=== PATIENT | female | born 1960 | race Caucasian/White ===

== ENCOUNTER 2016-03-27 15:42 | Emergency (ER) | payer MEDICARE, OTHER | END 2016-03-27 18:05 | disposition home or self-care (01) | LOC: ER 15:42 | CPT/HCPCS: 36415 ×2; 80053 ×2; 81001 ×2; 84439 ×2; 84443 ×2; 85025 ×2; 85610 ×2; 87088 ×2; 99285; G0479; G0480 ==

== ENCOUNTER 2016-04-05 11:19 | Inpatient (IN) | payer MEDICARE, OTHER ==
[~2016-04-05] VITALS: Ht 175.3 cm; Wt 79.9 kg
[2016-04-05] MEDS ORDERED: TRAZODONE 50 MG TAB PO PRN (16:30)
[2016-04-05] MEDS ORDERED: HALOPERIDOL 5 MG/ML VIAL IM PRN (16:35)
[2016-04-05] MEDS ORDERED: LORAZEPAM 2 MG TAB PO PRN (16:35)
[2016-04-05] MEDS ORDERED: MAG HYDROX 30 ML UDC PO PRN (16:35)
[2016-04-05] MEDS ORDERED: LORAZEPAM 2 MG/ML VIAL IM PRN (16:35)
[2016-04-05] MEDS ORDERED: ACETAMINOPHEN 325 MG TAB PO PRN (16:35)
[2016-04-05] MEDS ORDERED: DIPHENHYDRAMINE 50 MG CAP PO PRN (16:35)
[2016-04-05] MEDS ORDERED: DIPHENHYDRAMINE 50 MG/ML VIAL IM PRN (16:35)
[2016-04-05] MEDS ORDERED: ALU/MAG/SIM 30 ML UDC PO PRN (16:35)
[2016-04-05] MEDS ORDERED: HALOPERIDOL 5 MG TAB PO PRN (16:35)
[2016-04-05] MEDS ORDERED: cloNIDine 0.1 MG TAB ONE ×2 (16:41→16:44)
[2016-04-05] MEDS: NICOTINE 21 MG/24 HR TRANSDERM SCH (17:32)
[2016-04-05 19:01] VITALS: BP_SYST 133; RESP 18; TEMP 97.6
[2016-04-05] MEDS: *HOME MEDS KEPT IN PHARMACY XX SCH (20:12)
[2016-04-06] MEDS: *HOME MEDS KEPT IN PHARMACY XX SCH ×2 (09:00→20:00)
[2016-04-06 09:07] VITALS: BP_SYST 150; RESP 18; TEMP 97.8
[2016-04-06] MEDS: NICOTINE 21 MG/24 HR TRANSDERM SCH (09:34)
[2016-04-06] MEDS: BUSPIRONE HCL 5 MG TAB PO SCH ×3 (10:05→21:00)
[2016-04-06] MEDS: amLODIPine 5 MG TAB PO SCH (10:38)
[2016-04-06] MEDS: FLUOXETINE 20 MG CAP PO SCH (10:38)
[2016-04-06 19:05] VITALS: BP_SYST 157; RESP 20; TEMP 98.6
[2016-04-06 20:25] VITALS: BP_SYST 162; RESP 18
[2016-04-06 20:26] VITALS: BP_SYST 172; RESP 18
[2016-04-06] MEDS ORDERED: QUEtiapine 100 MG TAB PO SCH (21:00)
[2016-04-06 21:57] VITALS: Ht 175.3 cm; Wt 79.9 kg
[2016-04-07 07:00] VITALS: BP_SYST 152; RESP 16; TEMP 98.1
[2016-04-07] MEDS: *HOME MEDS KEPT IN PHARMACY XX SCH (08:00)
[2016-04-07] MEDS ORDERED: MISSING DOSE XX ONE (08:40)
[2016-04-07] MEDS: FLUOXETINE 20 MG CAP PO SCH (09:10)
[2016-04-07] MEDS: BUSPIRONE HCL 5 MG TAB PO SCH (09:10)
[2016-04-07] MEDS: amLODIPine 5 MG TAB PO SCH (09:10)
[2016-04-07] MEDS: NICOTINE 21 MG/24 HR TRANSDERM SCH (09:13)
[2016-04-07 09:30] VITALS: BP_SYST 142
[2016-04-07 10:15] VITALS: BP_SYST 138
[2016-04-07] MEDS ORDERED: TRIMETH/SULFAMETH 160/800 TAB PO SCH (11:10)
[2016-04-07 11:14] VITALS: BP_SYST 138; RESP 16; TEMP 98.1
[2016-04-07 11:20] VITALS: BP_SYST 138; RESP 16; TEMP 98.1
== END 2016-04-07 12:45 | DRG 885 ==
LOC: ER 11:19 → EMR 15:02 → PSY 16:30
PROVIDERS: ADMIT Psychiatry & Neurology Psychiatry; ATTEND Psychiatry & Neurology Psychiatry
DX: F33.2 Major depressive disorder, recurrent severe without psychotic features (principal); I10 Essential (primary) hypertension; N39.0 Urinary tract infection, site not specified; F11.10 Opioid abuse, uncomplicated; J44.9 Chronic obstructive pulmonary disease, unspecified; F41.9 Anxiety disorder, unspecified; F43.10 Post-traumatic stress disorder, unspecified; Z96.652 Presence of left artificial knee joint; F17.210 Nicotine dependence, cigarettes, uncomplicated
CPT/HCPCS: 36415; 80053; 80307; 80320; 80329; 81001; 84439; 84443; 85025; 85610; 87088; 99232; 99254